=== PATIENT | male | born 1955 | race Caucasian/White ===

== ENCOUNTER 2022-12-21 08:52 | Outpatient (CLI) | payer MEDICARE | END 2022-12-21 08:53 | disposition home or self-care (01) | LOC: CSHULT 08:52 | PROVIDERS: ATTEND Internal Medicine | DX: Z13.6 Encounter for screening for cardiovascular disorders (principal) | CPT/HCPCS: 76706 ==

== ENCOUNTER 2023-06-19 00:45 | Inpatient (IN) | payer MEDICARE ==
[2023-06-19] MEDS ORDERED: Ondansetron PF 4 MG/2 ML Vial IVP PRN (03:38)
[2023-06-19] MEDS ORDERED: Morphine 4 MG/ML VIAL SLOW IVP PRN (03:38)
[2023-06-19] MEDS ORDERED: diphenhydrAMINE 50 MG/ML VIAL IVP PRN (03:38)
[2023-06-19 04:37] VITALS: BMI 30.6
[2023-06-19] MEDS: Morphine 2 MG/ML VIAL SLOW IVP PRN ×2 (04:55→11:26)
[2023-06-19 10:09] LABS: #Eosinphils 0.4 10x3/uL (0.0-0.5); #Monocytes 0.8 10x3/uL (0.0-1.1); #Neutrophils 5.2 10x3/uL (1.5-8.4); %Basophils 0.4 % (0.0-2.0); %Eosinophils 5.7 % (0.0-6.0); %Lymphocytes 15.4 % (18.0-47.0); %Monocytes 10.1 % (0.0-10.0); %Neutrophils 68.1 % (40.0-75.0); Hemoglobin 14.3 g/dL (13.5-17.5); Mean Corpuscular HGB CONC 33.3 g/dL (32.0-36.0); Mean Corpuscular Hemoglobin 31.2 pg (27.0-33.0); Mean Corpuscular Volume 93.9 fl (81.2-95.1); Mean Platelet Volume 10.8 fl (7.4-10.4); Platelet Count 198 10x3/uL (150-450); RBC Distribution Width 13.2 % (11.5-14.5); Red Blood Cell (RBC) Count 4.58 10x6/uL (4.32-5.72); White Blood Cell (WBC) Count 7.6 10x3/uL (3.5-10.5)
[2023-06-19 10:23] LABS: ALT (SGPT) 23 U/L (8-55); AST (SGOT) 18 U/L (5-34); Albumin 3.7 g/dL (3.4-4.8); Alkaline Phosphatase 63 U/L (40-110); Anion Gap 12 mmol/L (10-20); BUN (Urea Nitrogen) 25 mg/dL (8.4-25.7); Bilirubin, Total 0.5 mg/dL (0.2-1.2); Calc. Creatinine Clearance 108 mL/min (70-130); Calcium 8.5 mg/dL (7.8-10.44); Carbon Dioxide 27 mmol/L (23-31); Chloride 108 mmol/L (98-107); Estimated GFR 87; Glucose 101 mg/dL (80-115); Potassium 4.5 mmol/L (3.5-5.1); Protein, Total 5.7 g/dL (5.8-8.1); Sodium 142 mmol/L (136-145)
[2023-06-19 11:05] LABS: INR-International Normal Ratio 0.9; PTT 24.5 sec (22.0-33.0); Prothrombin Time 9.8 sec (9.5-12.1)
[2023-06-19] MEDS ORDERED: Aspirin 81 mg Enteric Coated Tablet PO SCH (11:30)
[2023-06-19] MEDS: Acetaminophen 500 MG TAB PO PRN ×2 (13:33→21:38)
[2023-06-19 17:53] LABS: Troponin I 0.023 ng/mL (< 0.028)
[2023-06-19] MEDS ORDERED: Metoprolol Tartrate 25 MG TAB PO SCH (21:00)
[2023-06-19] MEDS ORDERED: Amlodipine 10 MG TAB PO SCH (21:15)
[2023-06-19] MEDS ORDERED: Lisinopril 20 MG TAB PO SCH (21:15)
[2023-06-20 00:07] LABS: Troponin I 0.021 ng/mL (< 0.028)
[2023-06-20 04:48] LABS: #Basophils 0.1 10x3/uL (0.0-0.2); #Eosinphils 0.4 10x3/uL (0.0-0.5); #Monocytes 0.5 10x3/uL (0.0-1.1); %Basophils 0.9 % (0.0-2.0); %Eosinophils 8.1 % (0.0-6.0); %Lymphocytes 25.2 % (18.0-47.0); %Monocytes 9.9 % (0.0-10.0); %Neutrophils 55.7 % (40.0-75.0); Hematocrit 41.1 % (38.8-50.0); Mean Corpuscular HGB CONC 34.1 g/dL (32.0-36.0); Mean Corpuscular Hemoglobin 31.4 pg (27.0-33.0); Mean Corpuscular Volume 92.2 fl (81.2-95.1); Mean Platelet Volume 10.6 fl (7.4-10.4); Platelet Count 176 10x3/uL (150-450); RBC Distribution Width 13.2 % (11.5-14.5); Red Blood Cell (RBC) Count 4.46 10x6/uL (4.32-5.72); White Blood Cell (WBC) Count 5.4 10x3/uL (3.5-10.5)
[2023-06-20 04:56] LABS: PTT 27.1 sec (22.0-33.0); Prothrombin Time 10.3 sec (9.5-12.1)
[2023-06-20 05:04] LABS: ALT (SGPT) 21 U/L (8-55); AST (SGOT) 17 U/L (5-34); Albumin 3.5 g/dL (3.4-4.8); Alkaline Phosphatase 68 U/L (40-110); Anion Gap 16 mmol/L (10-20); BUN (Urea Nitrogen) 22 mg/dL (8.4-25.7); Bilirubin, Total 0.7 mg/dL (0.2-1.2); Calc. Creatinine Clearance 124 mL/min (70-130); Calcium 8.7 mg/dL (7.8-10.44); Carbon Dioxide 22 mmol/L (23-31); Chloride 107 mmol/L (98-107); Estimated GFR 96; Globulin 2.1 g/dL (2.4-3.5); Glucose 98 mg/dL (80-115); Potassium 4.5 mmol/L (3.5-5.1); Protein, Total 5.6 g/dL (5.8-8.1); Sodium 140 mmol/L (136-145)
[2023-06-20] MEDS: Acetaminophen 500 MG TAB PO PRN (08:53)
[2023-06-20 12:33] VITALS: BP 122/71; TEMP 98.5
[2023-06-20] MEDS ORDERED: Atorvastatin Calcium 20 MG TAB PO SCH (21:00)
[2023-06-20] MEDS ORDERED: Amlodipine 10 MG TAB PO SCH (21:00)
[2023-06-20] MEDS ORDERED: Lisinopril 20 MG TAB PO SCH (21:00)
== END 2023-06-20 13:50 | disposition home or self-care (01) | DRG 918 ==
LOC: CSHTELE 02:44 → UNDOADMIN 02:44
PROVIDERS: ADMIT Family Medicine; ATTEND Family Medicine
DX: T63.091A Toxic effect of venom of other snake, accidental (unintentional), initial encounter (principal); S61.032A Puncture wound without foreign body of left thumb without damage to nail, initial encounter; S60.322A Blister (nonthermal) of left thumb, initial encounter; Y92.018 Other place in single-family (private) house as the place of occurrence of the external cause; I10 Essential (primary) hypertension; K21.9 Gastro-esophageal reflux disease without esophagitis; F10.90 Alcohol use, unspecified, uncomplicated; Z98.890 Other specified postprocedural states; Z88.8 Allergy status to other drugs, medicaments and biological substances; Z80.0 Family history of malignant neoplasm of digestive organs; Z83.3 Family history of diabetes mellitus
CPT/HCPCS: 36415; 71045; 80053; 84484; 85025; 85384; 85610; 85730; 93005; 93010; J2272